=== PATIENT | female | born 1970 | race Caucasian/White ===

== ENCOUNTER 2017-02-14 10:37 | Outpatient (CLI) | payer MEDICARE ==
[~2017-02-14] VITALS: Ht 170.2 cm; Wt 95.9 kg
--- NOTE | ~2017-02-14 | HEMODYNAMI ---
PATIENT:FERNANDO RAMIREZ MEDICAL RECORD: [id number] : 68 LOCATION:[facility] ADMISSION DATE: 02/14/17 Generatedon:02/14/201713:15 Patient name: FERNANDO RAMIREZ Patient #: [id number] SSN: D OB: 1970 Date of study: 02/14/2017 Page: Of Hemodynamic Procedure Report Patient Data Patient Demographics Procedure consent was obtained First Name: FERNANDO Gender: Female Last Name: ASHLEY : 1970 Middle Initial: L Age: 46 year(s) Patient #: [id number] Race: Additional ID: [id number] Contact details [address]: [address] [place] [address] State: [place] City: [place] Zip code: [address] Admission Admission Data Admission Date: 02/14/2017 Admission Time: 10:37 Procedure Procedure Types Cath Procedure Diagnostic Procedure LHC LHC w/Coronaries Miscellaneous Procedures Moderate Sedation up to 15 minutes Procedure Description Procedure Date Procedure Date: 02/14/2017 Procedure Start Time: 13:03 Procedure End Time: 13:15 Procedure Staff Name Function Emanuel Keita MD Performing Physician Tobin Holland RT Scrub Pee Rider RN Nurse Sandra Perez RT Monitor Procedure Data Cath Procedure Fluoroscopy Diagnostic fluoroscopy Total fluoroscopy Time: 1.3 time: 1.3 min min Diagnostic fluoroscopy Total fluoroscopy dose: 411 dose: 411 mGy mGy Contrast Material Contrast Material Type Amount (ml) Isovue 300 71 Entry Location Entry Primary Successful Side Size Upsize Upsize Entry Closure Succes sful Closure Location (Fr) 1 (Fr) 2 (Fr) Remarks Device Remarks Femoral Right 5 Fr Exoseal artery Estimated blood loss: 5 ml Diagnostic catheters Device Type Used For End Catheter Placement Cordis 5Fr JL 4.0 Left Coronary Catheter (MP) Angiography Cordis 5Fr 3DRC Catheter Right Coronary (MP) Angiography Cordis 5Fr Pigtail LV Angiography Catheter (MP) Procedure Complications No complications Procedure Medications Medication Administration Route Dosage Oxygen NC 2 l/min Heparin Flush Bag added to field 2 bags (1000units/500ml NS) 0.9% NaCl I.V. 100 ml/hr Fentanyl I.V. 50 mcg Versed I.V. 1 mg Fentanyl I.V. 50 mcg Versed I.V. 1 mg Fentanyl I.V. 100 mcg Versed I.V. 2 mg Hemodynamics Rest Heart Rate: 72 (bpm) Pressure Samples Time Site Value (mmHg) Purpose Heart Use Rate(bpm) 13:09 LV 116/-8,14 EDP 83 Gradients Valve Time Site Site Mean SEP/DFP Peak To Heart Use 1 2 (mmHg) (sec/min) Peak Rate (mmHg) (bpm) Aortic 13:10 LV AO 84 Snapshots Pre Cath Intra NCS Post Cath Vital Signs Time Heart Resp SPO2 etCO2 [id number] NIBP Rhythm Pain Sedation Rate (ipm) (%) (mmHg) (mmHg) (mmHg) Status Level (bpm) 12:46:46 71 17 100 0 0 114/77(93) NSR 0 (11) 10(A) , No pain 12:50:51 69 16 99 0 0 119/82(93) NSR 0 (11) 10(A) , No pain 12:55:01 70 18 100 0 0 113/74(87) NSR 0 (11) 10(A) , No pain 12:59:09 77 17 96 0 0 104/71(86) NSR 0 (11) 10(A) , No pain 13:03:15 76 19 96 0 0 107/71(86) NSR 0 (11) 9(A) , No pain 13:07:23 80 18 96 0 0 98/61(84) NSR 0 (11) 9(A) , No pain 13:11:28 85 17 96 0 0 94/63(80) NSR 0 (11) 9(A) , No pain Medications Time Medication Route Dose Verified Delivered Reason Notes Effec tiveness by by 12:47:15 Oxygen NC 2 Pee Altamiranoy Per l/min Tereso Rider RN physician RN 12:47:24 Heparin Flush added 2 Pee [place] used for Bag to bags Tereso Rider RN procedure (1000units/500ml field RN NS) 12:47:37 0.9% NaCl I.V. 100 Pee Pee Per ml/hr Tereso Rider RN physician RN 13:01:29 Fentanyl I.V. 50 Pee Pee for [facility] [place] Tereso Rider RN sedation RN 13:01:39 Versed I.V. 1 mg Pee Pee for Tereso Rider RN sedation RN 13:02:55 Fentanyl I.V. 50 Pee Pee for [facility] [place] Ridershobha Rider RN sedation RN 13:02:59 Versed I.V. 1 mg Pee Altamiranoy for Tereso Rider RN sedation RN 13:06:36 Fentanyl I.V. 100 Pee Pee for [facility] [place] Ridershobha Rider RN sedation RN 13:06:39 Versed I.V. 2 mg Pee Pee for Tereso Rider RN sedation paint stripper Log Time Note 12:27:55 Pee Rider RN sent for patient. Start room use. 12:32:56 Time tracking: Regular hours 12:33:01 Plan of Care:Hemodynamics will remain stable., Cardiac rhythm will remain stable., Comfort level will be maintained., Respiratory function will remain adequate., Patient/ family verbilizes understanding of procedure., Procedure tolerated without complication., Recovers from procedure without complications.. 12:37:34 Patient received from Pre/Post Procedure Room to [facility] 1 Alert and oriented. Tansferred to table in Supine position. 12:37:35 Warm blankets applied, and yordan hugger turned on for patient comfort. 12:37:35 Correct patient and procedure confirmed by team. 12:37:37 Signed procedure consent form obtained from patient. 12:37:37 ECG and BP/O2 sat monitors applied to patient. 12:37:38 Full Disclosure recording started 12:45:47 Vital chart was started 12:47:07 Rhythm: sinus rhythm 12:47:15 Oxygen 2 l/min NC was administered by Pee Rider RN; Per physician; 12:47:24 Heparin Flush Bag (1000units/500ml NS) 2 bags added to field was administered by Pee Rider RN; used for procedure; 12:47:37 0.9% NaCl 100 ml/hr I.V. was administered by Pee Rider RN; Per physician; 12:48:17 H&P Date Dictated: 02/08/2017 Within 30 days and on chart., H&P Addendum completed by physician on day of procedure. (MUST COMPLETE FOR ALL OUTPATIENTS). 12:48:19 Pre-procedure instructions explained to patient. 12:48:19 Pre-op teaching completed and patient verbalized understanding. 12:48:21 Family in waiting room. 12:48:26 Patient NPO since Midnight. 12:48:31 Use device set Femoral Dx 12:48:32 Acist Syringe opened to sterile field. 12:48:33 Bag Decanter opened to sterile field. 12:48:33 Medline Cath Pack opened to sterile field. 12:48:34 Terumo 5Fr [place] Sheath opened to sterile field. 12:48:34 St Abraham 260cm J .035 wire opened to sterile field. 12:48:35 Acist Hand Control opened to sterile field. 12:48:36 Acist Manifold opened to sterile field. 12:48:36 Diagnostic Infinity 5Fr Multipack catheter opened to sterile field. 12:48:37 Tegaderm 4 x 4 opened to sterile field. 12:48:55 Is the patient allergic to Iodine/contrast media? No. 12:49:01 Is patient on blood thinner?No 12:49:03 Patient diabetic? Yes. 12:49:11 If diabetic: On Metformin? Yes 12:49:16 If on Metformin: Last Dose? 02/12/2017 12:49:20 Previous problem with sedation/anesthesia? No ? 12:49:21 Snore? No 12:49:23 Sleep apnea? No 12:49:25 Deviated septum? No 12:49:25 Opens mouth fully? Yes 12:49:26 Sticks out tongue? Yes 12:49:28 Airway obstruction? No ? 12:49:30 Dentures? No ? 12:49:40 Pre procedure: right dorsailis pedis pulse 2+ Normal; easily identifiable; not easily obliterated 12:49:46 Pre procedure: right radial pulse 0-Absent 12:49:50 Patient pain scale 0/10 ?. 12:50:13 IV patent on arrival in left hand with 0.9% NaCl at [facility]. 12:50:18 Lab results completed and on chart. 12:50:33 Right groin area was prepped with chlora-prep and draped in sterile fashion 12:50:34 Alarms reviewed by R. N. 12:50:34 Sharps counted by scrub and verified by R.N. 12:51:15 Physician paged 12:51:17 Baseline sample Acquired. 12:53:36 Zero performed for pressure channel P1 12:53:40 Zero performed for pressure channel P1 13:00:57 Final Timeout: patient, procedure, and site verified with staff and physician. All members of the team are in agreement. 13:00:59 Right groin site verified by team. 13:01:02 Physical assessment completed. ASA score P 2 - A patient with mild systemic disease as per Emanuel Keita MD. 13:01:09 Sedation plan: IV Moderate Sedation Versed, Fentanyl 13:01:29 Fentanyl 50 mcg I.V. was administered by Pee Rider RN; for sedation; 13:01:39 Versed 1 mg I.V. was administered by Pee Rider RN; for sedation; 13:02:55 Fentanyl 50 mcg I.V. was administered by Pee Rider RN; for sedation; 13:02:59 Versed 1 mg I.V. was administered by Pee Rider RN; for sedation; 13:03:35 Procedure started. 13:03:38 Local anesthetic to right femoral artery with Lidocaine 2% by Emanuel Keita MD.INITIAL ACCESS ONLY 13:04:54 A 5 Fr sheath was inserted into the Right Femoral artery 13:05:01 A Cordis 5Fr JL 4.0 Catheter (MP) was advanced over the wire and used for Left Coronary Angiography. 13:06:36 Fentanyl 100 mcg I.V. was administered by Pee Rider RN; for sedation; 13:06:39 Versed 2 mg I.V. was administered by Pee Rider RN; for sedation; 13:07:31 Catheter removed. 13:07:36 A Cordis 5Fr 3DRC Catheter (MP) was advanced over the wire and used for Right Coronary Angiography. 13:08:14 Catheter removed. 13:08:54 A Cordis 5Fr Pigtail Catheter (MP) was advanced over the wire and used for LV Angiography. 13:10:01 LV gram done using PIERRE 13:10:02 LV hemodynamics recorded. 13:10:05 Injector settings: Ml/sec: 10, Volume: 20, 13:10:19 EF : 60 % 13:10:40 Catheter removed. 13:10:49 Cordis 5Fr Exoseal opened to sterile field. 13:10:58 Sheath removed intact; hemostasis achieved with Exoseal to the Right Femoral artery. 13:10:59 Procedure ended.(Physican Out) 13:11:09 Fluoroscopy time 01.30 minutes. 13:11:13 Flurop Dose total: 411 13:11:13 Fluoroscopy dose: 411 mGy 13:11:19 Contrast amount:Isovue 300 71ml. 13:11:21 Sharps counted by scrub and verified by R.N. 13:11:21 Insertion/operative site no bleeding no hematoma. 13:11:27 Post-op/insertion site Right Femoral artery dressed using a 4 x 4 and Tegaderm. 13:11:31 Post right femoral artery:stable, clean and dry 13:11:32 Post Procedure Pulses reassessed and unchanged 13:11:36 Post-procedure physical assessment completed. ASA score P 2 - A patient with mild systemic disease as per Emanuel Keita MD. 13:11:39 Post procedure rhythm: unchanged. 13:11:43 Estimated blood loss: 5 ml 13:11:45 Post procedure instruction explained to patient.Patient verbalizes understanding. 13:11:46 Patient needs reinforcement of post procedure teaching. 13:11:49 Procedure type changed to Cath procedure, Diagnostic procedure, LHC, LHC w/Coronaries, Miscellaneous Procedures, Moderate Sedation up to 15 minutes 13:11:56 Procedure Complication : No complications 13:11:58 See physician's report for complete and final results. 13:12:13 Procedure and supply charges have been captured, reviewed, submitted and are correct. 13:14:54 Vital chart was stopped 13:14:57 Report given to Pre/Post Procedure Room. 13:14:59 Patient transfered to Pre/Post Procedure Room with Stretcher. 13:15:16 Procedure ended. 13:15:16 Full Disclosure recording stopped 13:15:19 End room use (Document Last) Device Usage Item Name Manufacture Quantity Catalog Hospital Part Current Minimal Lo t# / Number Charge Number Stock Stock Serial# Code [facility] [id number] 850859 912194 199604 20 Syringe Medical [employer] Inc Bag Microtek 1 2002S 907416 94361 092326 5 Decanter [employer] Inc. Medline Cardinal 1 [id number] 011816 83549 138917 5 Cath Pack Health Terumo 5Fr Terumo 1 [id number] 282427 196499 188443 [address] Abraham 1 329262 289111 381566 967117 30 260cm J .035 wire Acist Hand Acist 1 16781 658275 070343 914638 5 Control Medical [employer] Inc Acist Acist 1 39435 467704 277241 197120 5 Manifold Medical Systems Inc Diagnostic Cardinal 1 [id number] 413216 38852 857749 30 Infinity Health 5Fr Multipack catheter Tegaderm 4 3M 1 1626W 113637 866167 353547 5 x 4 Cordis 5Fr Cardinal 1 755010 5 JL 4.0 Health Catheter (MP) Cordis 5Fr Cardinal 1 139543 5 3DRC Health Catheter (MP) Cordis 5Fr Cardinal 1 575819 5 Pigtail Health Catheter (MP) Cordis 5Fr Cardinal 1 EX500 883739 080831 843748 10 Rise Signature Audit [place] Stage Time Signature Unsigned Intra-Procedure 02/14/2017 Sandra 1:15:31 PM Counts RT(R) Signatures Monitor : Sandra Signature : Counts RT Date : Time : [id number] [place] [address]
[~2017-02-14 10:37] MED LIST: CYCLOBENZAPRINE10 MG PO; LANTUS INSULIN10 ML SQ; LEVAQUIN500 MG PO; LEXAPRO20 MG PO; LINZESS290 MCG PO; NEURONTIN 300300 MG PO; PERCOCET 7.5/321 TAB PO; PROTONIX40 MG PO; TOPAMAX50 MG PO; XANAX1 MG PO
[2017-02-14] MEDS ORDERED: GLUCOTROL 5 MG T5 MG PO (10:59)
[2017-02-14] MEDS ORDERED: DESERYL100 MG PO (11:00)
[2017-02-14] MEDS ORDERED: GLUCOPHAGE500 MG PO (11:01)
[2017-02-14] MEDS ORDERED: OXYBUTYNIN CHLOR5 MG PO (11:03)
[2017-02-14 11:04] VITALS: BP 125/73; Ht 170.2 cm; Wt 95.9 kg
[2017-02-14 11:26] LABS: BASOPHILS 0.3 % (0.0-2.0); EOSINOPHILS 2.5 % (0-7); HEMOGLOBIN 13.1 g/dL (12-16); IMMATURE GRANULOCYTES 0.4 % (0-5); LYMPHOCYTES 28.9 % (15-50); MCH 29.9 pg (26.0-34.0); MCHC 33.6 g/dL (31.0-37.0); MEAN PLATELET VOLUME 9.1 fL (7.4-10.4); MONOCYTES 7.6 % (2-11); NEUTROPHILS 60.3 % (40-80); PLATELET COUNT 265 10x3/uL (130-400); RBC 4.38 10x6/uL (4.00-5.40); WBC 7.6 10x3/uL (4.8-10.8)
[2017-02-14 11:42] LABS: ANION GAP 16.9 mmol/L (8-16); CALCIUM 8.8 mg/dL (8.5-10.1); CARBON DIOXIDE 20.3 mmol/L (21.0-32.0); POTASSIUM - SERUM 4.2 mmol/L (3.5-5.1)
--- NOTE | 2017-02-14 13:59 | NUR ---
1345-HAVING SEVERE ITCHING, PAGED DR CAM, RIGHT GROIN CDI, NO HEMATOMA. 1350-NEW ORDERS RECEIVED 1357-ATIVAN 2MG SIVP AND BENADRYL 50MG SIVP GIVEN FOR SEVERE ITCHING AND AGGITATION. 1401-ITCHING BETTER
--- NOTE | 2017-02-14 15:25 | NUR ---
1515-IV D'C WITH CATH TIP INTACT, RIGHT GROIN CDI, WRITTEN AND VERBAL INSTRUCTIONS GIVEN TO PT AND FRIEND. D'C HOME IN PRIVATE CAR
--- NOTE | 2017-02-15 08:22 | OP ---
PATIENT NAME: FERNANDO RAMIREZ MEDICAL RECORD: [id number] :68 LOCATION:D.CAT ADMISSION DATE: SURGEON: JANKI CAM MD DATE OF OPERATION: 02/14/2017 PROCEDURES: Left heart catheterization, selective coronary angiography, right femoral artery approach. CATHETERS: A 5-Beninese sheath, 5/4 left and right Terri, 5/4 pig. The procedure was well tolerated. The patient returned to the kay, sheath removed. ExoSeal device placed. FINDINGS: Left ventriculography in 30-degree PIERRE view: Normal wall motion, normal systolic function. CORONARY ANATOMY: Left main: Left main is free of disease. LAD: Free of disease in the diagonal system. CIRCUMFLEX: Free of disease in the marginal system. RIGHT CORONARY ARTERY: Dominant artery, gives rise to PDA, free of disease. IMPRESSION: Normal systolic function. Normal coronary anatomy. TRANSINT:[id number] Voice Confirmation ID: [id number] DOCUMENT ID: [id number] JANKI CAM MD at 0822 CC: [id number] DICTATION DATE: 02/14/17 1316 ABSTRACT WRITER: 02/14/17 1352 DEP CLI 02/14/17 [facility] [address] [place] [address]
== END 2017-02-14 15:26 | disposition home or self-care (01) ==
LOC: D.CATH 10:37
PROVIDERS: Internal Medicine Interventional Cardiology
DX: I20.9 Angina pectoris, unspecified (principal); E11.9 Type 2 diabetes mellitus without complications; E78.5 Hyperlipidemia, unspecified; R07.9 Chest pain, unspecified; F17.200 Nicotine dependence, unspecified, uncomplicated

== ENCOUNTER 2017-02-14 20:00 | Emergency (ER) | payer MEDICARE ==
[2017-02-14 11:04] VITALS: BMI 33.1
[~2017-02-14 20:00] MED LIST changes: +DESERYL100 MG PO; +GLUCOPHAGE500 MG PO; +GLUCOTROL 5 MG T5 MG PO; +OXYBUTYNIN CHLOR5 MG PO
[2017-02-14 23:13] LABS: APPEARANCE CLEAR (CLEAR); BILIRUBIN NEGATIVE (NEGATIVE); COLOR YELLOW (YELLOW); GLUCOSE NEGATIVE (NEGATIVE); KETONE NEGATIVE (NEGATIVE); LEUKOCYTE ESTERASE NEGATIVE (NEGATIVE); NITRITE NEGATIVE (NEGATIVE); PROTEIN NEGATIVE (NEGATIVE); UROBILINOGEN NORMAL (NORMAL)
[2017-02-14 23:24] LABS: BASOPHILS 0.2 % (0.0-2.0); EOSINOPHILS 2.4 % (0-7); HEMATOCRIT 36.6 % (36.0-48.0); HEMOGLOBIN 11.9 g/dL (12-16); IMMATURE GRANULOCYTES 0.2 % (0-5); LYMPHOCYTES 25.6 % (15-50); MCH 29.2 pg (26.0-34.0); MCHC 32.5 g/dL (31.0-37.0); MCV 89.9 fL (80.0-100.0); MEAN PLATELET VOLUME 9.2 fL (7.4-10.4); MONOCYTES 8.1 % (2-11); NEUTROPHILS 63.5 % (40-80); PLATELET COUNT 243 10x3/uL (130-400); RBC 4.07 10x6/uL (4.00-5.40); RDW 13.2 % (11.5-14.5)
[2017-02-14 23:29] LABS: WBC 10.2 10x3/uL (4.8-10.8)
[2017-02-14 23:41] LABS: ALBUMIN 2.9 g/dL (3.4-5.0); ANION GAP 10.7 mmol/L (8-16); BILIRUBIN - TOTAL 0.14 mg/dL (0.2-1.3); CALCIUM 8.4 mg/dL (8.5-10.1); POTASSIUM - SERUM 4.3 mmol/L (3.5-5.1); PROTEIN - SERUM 6.4 g/dL (6.4-8.2)
[2017-02-14 23:48] LABS: CARBON DIOXIDE 27.6 mmol/L (21.0-32.0)
== END 2017-02-15 00:15 | disposition home or self-care (01) ==
LOC: D.ER 20:00
PROVIDERS: Emergency Medicine
DX: R10.9 Unspecified abdominal pain (principal); F41.9 Anxiety disorder, unspecified; F32.9 Major depressive disorder, single episode, unspecified; E11.9 Type 2 diabetes mellitus without complications; M79.7 Fibromyalgia; K21.9 Gastro-esophageal reflux disease without esophagitis; F17.200 Nicotine dependence, unspecified, uncomplicated

== ENCOUNTER 2017-06-13 08:15 | Day surgery (SDC) | payer MEDICARE ==
[2017-06-12 09:29] LABS: BASOPHILS 0.2 % (0-2); EOSINOPHILS 1.1 % (0-7); HEMATOCRIT 39.9 % (36.0-48.0); HEMOGLOBIN 13.3 g/dL (12-16); IMMATURE GRANULOCYTES 0.2 % (0-5); MCH 29.2 pg (26.0-34.0); MCHC 33.3 g/dL (31.0-37.0); MCV 87.7 fL (80.0-100.0); MEAN PLATELET VOLUME 9.1 fL (7.4-10.4); MONOCYTES 6.2 % (2-11); NEUTROPHILS 66.3 % (40-80); PLATELET COUNT 235 10x3/uL (130-400); RBC 4.55 10x6/uL (4.00-5.40); RDW 13.5 % (11.5-14.5); WBC 8.9 10x3/uL (4.8-10.8)
[2017-06-12 09:46] LABS: ANION GAP 9.4 mmol/L (8-16); CARBON DIOXIDE 27.9 mmol/L (21.0-32.0); CREATININE - SERUM 1.2 mg/dL (0.6-1.3); POTASSIUM - SERUM 4.3 mmol/L (3.5-5.1)
[2017-06-12 09:54] LABS: INR 0.83 (0.85-1.17); PROTIME 11.2 SECONDS (11.6-15.0)
[2017-06-12 09:55] LABS: APTT 28.9 SECONDS (22.8-39.4)
[~2017-06-13] VITALS: Ht 170.2 cm; Wt 92.5 kg
[~2017-06-13 08:15] MED LIST changes: +CARAFATE1 G PO; +LIPITOR40 MG PO; +NEURONTIN 400400 MG PO
[2017-06-13 08:41] VITALS: Ht 170.2 cm; Wt 92.5 kg
[2017-06-13] MEDS ORDERED: MEPERIDINE HCL50 MG PO (13:02)
--- NOTE | 2017-06-13 13:57 | NUR ---
CONSULTED ANESTHESIA REGARDING CHEST PAIN. ANESTHESIA ORDERED A POST OP EKG. WILL CONTINUE TO MONITOR.
--- NOTE | 2017-06-13 14:09 | NUR ---
ANESTHESIA REVIEWED EKG. NORMAL EKG. NO NEW ORDERS.
--- NOTE | 2017-06-13 15:47 | NUR ---
1545--IV DC'D, PT UP TO DRESS. KAT RN
--- NOTE | 2017-06-13 16:32 | NUR ---
1354--PT COMPLAINS OF PAIN FROM DRESSING, RATES PAIN 5/10. DEMEROL 50 MG TAB GIVEN PO. KAT YEN 9501--PT REPORTS PAIN IS GETTING BETTER. DISCHARGE INSTRUCTIONS GIVEN, PT VERBALIZES UNDERSTANDING. PT OFF UNIT VIA WC. KAT YEN
--- NOTE | 2017-06-14 21:23 | OP ---
PATIENT NAME: FERNANDO RAMIREZ MEDICAL RECORD: [id number] :68 LOCATION:D.OPS ADMISSION DATE: SURGEON: CONOR RYAN MD DATE OF OPERATION: 06/13/2017 Orthopedic Surgery Operative Note PREOPERATIVE DIAGNOSIS: Impingement syndrome of the right shoulder. POSTOPERATIVE DIAGNOSES: Impingement syndrome of the right shoulder plus severe biceps tendinitis. PROCEDURES: 1. Arthroscopic biceps tenotomy. 2. Arthroscopic distal clavicle excision. 3. Arthroscopic subacromial decompression with acromioplasty and bursectomy. SURGEON: Conor Ryan MD. ANESTHESIA: General. INTRAOPERATIVE COMPLICATIONS: None. SUMMARY OF PATHOLOGIC FINDINGS: Consistent with the preoperative diagnosis, the patient had severe impingement, some superficial rotator cuff tearing and also, the patient had severe acromioclavicular arthropathy and biceps tendinopathy. OPERATIVE SUMMARY IN DETAIL: After obtaining the appropriate preoperative orthopedic surgery consent as well as anesthetic consultation, evaluation and clearance, the patient was brought to the operating room and placed on table in supine position. After general laryngeal mask was administered, the patient was placed in a left lateral decubitus position. All pressure points were well padded to include down leg peroneal pad as well as axillary roll. The patient was held firmly down using the vacuum pack suction system. Having completed this, the right upper extremity was then prepped and draped in routine sterile fashion. The arm was held in the Arthrex traction boom at 30 degrees of forward flexion, 30 degrees of abduction with 10 pounds of traction laterally. Arthroscopy was established in the glenohumeral joint from a posterior portal. Anterior portal was established in the anterior safe interval. Diagnostic arthroscopy showed severe biceps tendinitis, very small amount of PASTA lesion, but it was very small. The labrum had some peel back around the posterior superior aspect, slight debridement was done here. At this point, the [place] tissue ablation system was brought in and biceps tenotomy was performed. Attention was then turned to the subacromial space. While on the subacromial space, [place] tissue ablation system was utilized to denude the undersurface of the acromion of all soft tissue elements. Coracoacromial ligament was released. Type 3 acromion was then treated with acromioplasty at the level of acromioclavicular joint. At this point, distal clavicular inferior osteophytes were taken down and through a separate arthroscopic incision anteriorly under direct arthroscopic visualization, distal clavicle excision of 1 cm was performed. Having completed this, bursectomy was performed anteriorly, laterally, posteriorly as well as superiorly. The rotator cuff had attritional tear changes, but no full thickness rotator cuff tearing. Arthroscopy portals were closed in routine interrupted fashion using 4-0 OPERATIVE REPORT [id number] FERNANDO RAMIREZ Prolene. Arthroscopy portal was closed in routine interrupted fashion using 4-0 Prolene and sterile dressings were applied. The patient was awakened and taken to the recovery room in stable condition. All final needle and sponge counts were correct. TRANSINT:[id number] Voice Confirmation ID: [id number] DOCUMENT ID: [id number] SHELBY NUNEZ, CONOR ARGUELLES at 2123 CC: [id number] DICTATION DATE: 06/13/17 1306 WASHERETTE MACHINE OPERATOR: 06/13/17 1608 [facility] 06/13/17 [id number] [place] [address]
== END 2017-06-13 16:25 | disposition home or self-care (01) ==
LOC: D.OPS 08:15 → D.PAN 09:00 → D.OPS 09:00 → D.PAN 09:30 → D.OPS 09:55 → D.PAN 09:55 → D.OPS 16:25
PROVIDERS: Anesthesiology
DX: M75.41 Impingement syndrome of right shoulder (principal); M75.21 Bicipital tendinitis, right shoulder; Z01.812 Encounter for preprocedural laboratory examination

== ENCOUNTER → 2017-07-29 07:49 | Outpatient (CLI) | payer MEDICARE ==
[2017-06-13 08:41] VITALS: BMI 32.0
[~2017-07-29 07:49] MED LIST changes: +ATARAX 25 MG TA25 MG PO; +ENDOCET 10-3251 TAB PO; +MEPERIDINE HCL50 MG PO; +NAPROSYN500 MG PO; +PHENERGAN25 M1 PO
--- NOTE | 2017-08-01 08:51 | EMG ---
PATIENT:FERNANDO RAMIREZ DATE OF SERVICE: 07/29/17 MEDICAL RECORD: [id number] DATE OF : 68 LOCATION: [facility] ADMISSION DATE: REFERRING PHYSICIAN: SELIN GUSMAN MD INTERPRETING PHYSICIAN: SELIN GUSMAN MD DATE OF SERVICE: 07/29/2017 Referred by myself as an outpatient DATE OF EXAMINATION: 07/29/2017 ELECTROMYOGRAPHIC DATA: Electromyographic examination is limited to both lower extremities. The patient had a great deal of difficulty in tolerating the procedure secondary to complaints of pain, especially with the nerve conduction studies. She also had difficulty with the needle electrode examination as well. In the right lower extremity, right peroneal motor stimulation elicits a compound motor action potential with a distal latency of 5.1 milliseconds, peak amplitude of 3 millivolts, and calculated conduction velocity of 44 meters per second. Right tibial motor stimulation elicits a compound motor action potential with a distal latency of 3.6 milliseconds, peak amplitude of 8 millivolts, and calculated conduction velocity of 41 meters per second. Antidromic right sural sensory stimulation elicits a response with a distal latency of 2.7 milliseconds, amplitude of 5 microvolts and calculated conduction velocity of 40 meters per second. The right lower extremity H reflex recording at gastrocsoleus has a latency of 41 milliseconds. In the left lower extremity, left peroneal motor stimulation elicits a compound motor action potential with a distal latency of 4.8 milliseconds, peak amplitude of 4 millivolts, and calculated conduction velocity of 43 meters per second. Left tibial motor stimulation elicits a compound motor action potential with a distal latency of 5.4 milliseconds, peak amplitude of 6 millivolts, and calculated conduction velocity of 40 meters per second. Antidromic left sural sensory stimulation elicits no reliable response. The left lower extremity H reflex recording at gastrocsoleus is absent. Needle electrode examination is limited to both lower extremities as well. Muscles interrogated include the abductor hallucis, extensor digitorum brevis, abductor digiti quinti, tibialis anterior, medial gastrocnemius, vastus lateralis, semitendinosis and gluteus anaid. There is no abnormality of insertional activity and no abnormal spontaneous activity is seen in all muscles interrogated. Motor unit potential morphology and the pattern of motor unit potential firing and recruitment, however, demonstrates decreased numbers of motor units firing at a slow variable rate consistent with the patient's difficulty in tolerating the procedure and variable in complete effort. IMPRESSION: Electromyographic examination of both lower extremities demonstrates absence of the left sural sensory response and left H reflex. The motor and sensory responses otherwise in both lower extremities are normal with the exception of prolongation of the right H reflex. All values fall at or near the lower limits of normal in terms of conduction velocity calculations. The findings are consistent with a diffuse disorder of the lower motor neuron in both lower extremities, minimal in degree electrically, consistent with the diagnosis of a sensory motor peripheral polyneuropathy. This is soft findings ELECTROMYGRAM/NERVE CONDUCTION [id number] FERNANDO RAMIREZ based on levels near or at the lower limits of normal. In addition, this is suggestive of a superimposed left more proximal lesion of S1 nerve fibers with the absence of the sural sensory and H reflex on this side only. Clinical correlation is required. TRANSINT:[id number] Voice Confirmation ID: [id number] DOCUMENT ID: [id number] SELIN GUSMAN MD at 0851 CC: [id number] DICTATION DATE: 07/29/17 0841 HEADER MACHINE OPERATOR: 07/29/17 1227 DEP CLI 07/29/17 [facility] [address] [place] [address]
== END | disposition home or self-care (01) ==
LOC: D.CN 07:49
DX: G60.9 Hereditary and idiopathic neuropathy, unspecified (principal); M54.5 Low back pain; E11.40 Type 2 diabetes mellitus with diabetic neuropathy, unspecified

== ENCOUNTER 2017-09-05 05:28 | Day surgery (SDC) | payer MEDICARE ==
[2017-09-04 09:23] LABS: HEMATOCRIT 39.8 % (36.0-48.0); HEMOGLOBIN 13.1 g/dL (12-16); MCH 30.3 pg (26.0-34.0); MCHC 32.9 g/dL (31.0-37.0); MCV 91.9 fL (80.0-100.0); MEAN PLATELET VOLUME 9.3 fL (7.4-10.4); RBC 4.33 10x6/uL (4.00-5.40); RDW 13.4 % (11.5-14.5); WBC 7.5 10x3/uL (4.8-10.8)
[2017-09-04 09:31] LABS: CALCIUM 8.7 mg/dL (8.5-10.1); CARBON DIOXIDE 23.9 mmol/L (21.0-32.0); CREATININE - SERUM 1.3 mg/dL (0.6-1.3); POTASSIUM - SERUM 3.9 mmol/L (3.5-5.1)
[~2017-09-05 05:28] MED LIST changes: -ATARAX 25 MG TA25 MG PO; -ENDOCET 10-3251 TAB PO; -NAPROSYN500 MG PO; -PHENERGAN25 M1 PO
[2017-09-05] MEDS ORDERED: NAPROSYN500 MG PO (09:50)
[2017-09-05] MEDS ORDERED: PHENERGAN25 M1 PO (09:51)
[2017-09-05] MEDS ORDERED: ENDOCET 10-3251 TAB PO (09:51)
[2017-09-05] MEDS ORDERED: ATARAX 25 MG TA25 MG PO (09:52)
[2017-09-05 09:58] VITALS: BP 102/69; BMI 30.1
[2017-09-05] MEDS ORDERED: MEPERIDINE HCL50 MG PO (12:13)
--- NOTE | 2017-09-05 16:13 | NUR ---
1300 TO ROOM 2516 WITH B/P 95/57 1330 B/P 88/48 1345 B/P 95/58 1400 B/P 97/56 , IV DC WITH CATHER TIP INTACT 1430 B/P 88/45 CALL PETRA, SPOKE WITH IRINA NEW ORDERS 1500 IV RESTART X1 WITH 22 NEEDLE, IV FLIUD BOLUS STARTED 1530 B/P 100/52 1600 B/P 100\57 500 CC BOLUS DONE .CALLED IRINA OK TO DC, IV DC WITH CATHER TIP INTACT,PATIENT AWAKE AND ALERT X 4 TALKING WITH FAMILY
--- NOTE | 2017-09-30 12:37 | OP ---
PATIENT NAME: CALISTA RAMIREZ MEDICAL RECORD: [id number] :68 LOCATION:[facility] ADMISSION DATE: SURGEON: CONOR RYAN MD DATE OF OPERATION: 09/05/2017 PREOPERATIVE DIAGNOSIS: SLAP lesion with impingement syndrome of the right shoulder. POSTOPERATIVE DIAGNOSIS: SLAP lesion with impingement syndrome of the right shoulder. PROCEDURES: 1. Arthroscopic SLAP repair. 2. Arthroscopic subacromial decompression, acromioplasty, and bursectomy. SURGEON: Conor Ryan MD ANESTHESIA: General. INTRAOPERATIVE COMPLICATIONS: None. SUMMARY OF PATHOLOGIC FINDINGS: Calista had a SLAP tear anterior to posterior that required anchor fixation along with some impingement noted by excoriation of the coracoacromial ligament. OPERATIVE SUMMARY IN DETAIL: After obtaining the appropriate preoperative orthopedic surgery consent as well as anesthetic consultation, evaluation and clearance, the patient was brought to the operating room and placed on the operating table in supine position. After adequate general laryngeal mask airway was administered, she was placed in the right lateral decubitus position. All pressure points were well padded to include down leg peroneal pad as well as axillary roll. She was held firmly to the operating table using the vacuum pack suction system. The patient's right upper extremity and shoulder were then prepped and draped in routine sterile fashion. The arm was held in the Arthrex traction boom at 30 degrees of forward flexion, 30 degrees of abduction with 10 pounds of traction laterally. Arthroscopy was established in the glenohumeral joint from a posterior portal and the anterior portal was established in the anterior safe interval. Diagnostic arthroscopy did reveal the labral tear as tolerated, this are as indicated above in the MRI. The Arthrex percutaneous kit was utilized to place anchors at the 9 o'clock, 10:30, and 1 o'clock position for excellent labral reapproximation as the superior aspect of the glenoid had been debrided of soft tissue elements back to cortical bleeding bone. Having completed the SLAP repair, attention was turned to the subacromial space. The subacromial space did show undersurface excoriation of the coracoacromial ligament. The [place] tissue ablation system was utilized to denude the undersurface of the coracoacromial ligament and then a 5-0 barrel bur was used for acromioplasty at the level of acromioclavicular joint. Having completed this, arthroscopy portals were closed in routine interrupted fashion using 4-0 Prolene. Sterile dressings were applied. The patient was awakened and taken to recovery room in stable condition. All final needle and sponge counts were correct. TRANSINT:[id number] Voice Confirmation ID: [id number] DOCUMENT ID: [id number] OPERATIVE REPORT [id number] CALISTA RAMIREZ MD, CONOR ARGUELLES at 1237 CC: [id number] DICTATION DATE: 09/30/17 1045 PICTURE PAINTER: 09/30/17 1208 [facility] 09/05/17 [id number] [place] [address]
== END 2017-09-05 16:00 | disposition home or self-care (01) ==
LOC: D.OPS 05:28 → D.PAN 10:30 → D.OPS 10:30
PROVIDERS: Anesthesiology
DX: S43.431A Superior glenoid labrum lesion of right shoulder, initial encounter (principal); Z01.812 Encounter for preprocedural laboratory examination

== ENCOUNTER → 2017-10-24 15:02 | Outpatient (CLI) | payer MEDICARE ==
[~2017-10-24 15:02] MED LIST changes: +ATARAX 25 MG TA25 MG PO; +ENDOCET 10-3251 TAB PO; +NAPROSYN500 MG PO; +PHENERGAN25 M1 PO
== END | disposition home or self-care (01) ==
LOC: D.CT 15:00
DX: R42 Dizziness and giddiness (principal)

== ENCOUNTER → 2018-01-22 12:29 | Outpatient (CLI) | payer MEDICARE ==
[~2018-01-22 12:29] MED LIST changes: +OXYCODONE HCL5 MG PO
== END | disposition home or self-care (01) ==
LOC: D.MRI 01-15 13:30
DX: M54.12 Radiculopathy, cervical region (principal)

== ENCOUNTER 2018-02-07 16:12 | Emergency (ER) | payer MEDICARE ==
[~2018-02-07 16:12] MED LIST changes: -OXYCODONE HCL5 MG PO
== END 2018-02-07 16:32 | disposition home or self-care (01) ==
LOC: D.ER 16:12
DX: R55 Syncope and collapse (principal)

== ENCOUNTER 2018-02-12 09:35 | Emergency (ER) | payer MEDICARE | END 2018-02-12 12:01 | disposition left against medical advice (07) | LOC: D.ER 09:35 | DX: R51 Headache (principal) ==

== ENCOUNTER 2018-02-24 10:29 | Inpatient (IN) | payer MEDICARE ==
[2018-02-24 11:34] LABS: UDS - AMPHET NEGATIVE QUAL (NEGATIVE); UDS - BARB NEGATIVE QUAL (NEGATIVE); UDS - BENZO NEGATIVE QUAL (NEGATIVE); UDS - COCAINE NEGATIVE QUAL (NEGATIVE); UDS - OPIATE POSITIVE QUAL (NEGATIVE); UDS - PCP NEGATIVE QUAL (NEGATIVE); UDS - THC NEGATIVE QUAL (NEGATIVE)
[2018-02-24 11:57] LABS: APPEARANCE HAZY (CLEAR); BILIRUBIN NEGATIVE (NEGATIVE); COLOR YELLOW (YELLOW); GLUCOSE NEGATIVE (NEGATIVE); KETONE LARGE mg/dL (NEGATIVE); NITRITE NEGATIVE (NEGATIVE); PROTEIN NEGATIVE (NEGATIVE); UROBILINOGEN NORMAL (NORMAL)
[2018-02-24 11:58] LABS: BACTERIA FEW /hpf (NONE SEEN); EPITHELIAL CELLS OCC /hpf (0-5); MUCUS <1+ /lpf (NONE SEEN); WHITE CELLS - URINE RARE /hpf (0-5)
[2018-02-24 11:58] LABS: BASOPHILS 0.1 % (0-2); EOSINOPHILS 1.1 % (0-7); HEMATOCRIT 38.3 % (36.0-48.0); HEMOGLOBIN 13.2 g/dL (12-16); IMMATURE GRANULOCYTES 0.3 % (0-5); LYMPHOCYTES 23.2 % (15-50); MCH 30.8 pg (26.0-34.0); MCHC 34.5 g/dL (31.0-37.0); MCV 89.3 fL (80.0-100.0); MONOCYTES 7.3 % (2-11); PLATELET COUNT 263 10x3/uL (130-400); RBC 4.29 10x6/uL (4.00-5.40); RDW 12.9 % (11.5-14.5); WBC 11.2 10x3/uL (4.8-10.8)
[2018-02-24 12:12] LABS: INR 0.93 (0.85-1.17); PROTIME 12.1 SECONDS (11.6-15.0)
[2018-02-24 12:14] LABS: ALBUMIN 3.7 g/dL (3.4-5.0); ALKALINE PHOSPHATASE 80 U/L (46-116); ALT (SGPT) 20 U/L (10-68); BILIRUBIN - TOTAL 0.52 mg/dL (0.2-1.3); CALC OSMOLALITY 276 mosm/kg (275-300); CALCIUM 9.4 mg/dL (8.5-10.1); CARBON DIOXIDE 19.5 mmol/L (21.0-32.0); CHLORIDE - SERUM 102 mmol/L (98-107); CREATININE - SERUM 1.4 mg/dL (0.6-1.3); GLUCOSE 75 mg/dL (74-106); POTASSIUM - SERUM 3.2 mmol/L (3.5-5.1); PROTEIN - SERUM 7.5 g/dL (6.4-8.2); SODIUM 139 mmol/L (136-145); UREA NITROGEN 12 mg/dL (7-18); eGFR NON AFRICAN AMERICAN 42 mL/min (90-120)
[2018-02-24 12:22] LABS: CREATINE KINASE 53 UL (21-215); MAGNESIUM - SERUM 1.3 mg/dL (1.8-2.4); PRO BNP 75 pg/mL (0-125)
[2018-02-24 12:24] LABS: TROPONIN-I < 0.017 ng/mL (0.000-0.060)
[2018-02-24 20:29] VITALS: BP 95/67
[2018-02-25 04:14] VITALS: BP 89/59
[2018-02-25 06:02] LABS: BASOPHILS 0.2 % (0-2); EOSINOPHILS 2.9 % (0-7); HEMATOCRIT 31.2 % (36.0-48.0); IMMATURE GRANULOCYTES 0.4 % (0-5); LYMPHOCYTES 27.3 % (15-50); MCH 30.5 pg (26.0-34.0); MCHC 33.3 g/dL (31.0-37.0); MONOCYTES 9.2 % (2-11); PLATELET COUNT 215 10x3/uL (130-400); WBC 9.1 10x3/uL (4.8-10.8)
[2018-02-25 06:10] LABS: HEMOGLOBIN 10.4 g/dL (12-16); MCV 91.5 fL (80.0-100.0); RBC 3.41 10x6/uL (4.00-5.40)
[2018-02-25 06:56] LABS: BILIRUBIN - TOTAL 0.28 mg/dL (0.2-1.3); CALCIUM 8.6 mg/dL (8.5-10.1); CARBON DIOXIDE 23.6 mmol/L (21.0-32.0); CREATININE - SERUM 1.2 mg/dL (0.6-1.3); POTASSIUM - SERUM 3.6 mmol/L (3.5-5.1); PROTEIN - SERUM 5.9 g/dL (6.4-8.2)
[2018-02-25 06:57] LABS: ALBUMIN 2.7 g/dL (3.4-5.0)
[2018-02-25 08:25] VITALS: BMI 30.1
[2018-02-25 08:32] VITALS: BP 89/56
[2018-02-25 11:44] VITALS: BP 99/53
[2018-02-25 15:17] VITALS: BP 82/52
[2018-02-25 21:33] VITALS: BP 151/61
[2018-02-26 00:25] VITALS: BP 154/64
[2018-02-26 04:21] VITALS: BP 109/72
[2018-02-26 08:37] VITALS: BP 99/66
[2018-02-26 12:01] VITALS: BP 133/76
[2018-02-26 16:24] VITALS: BP 113/71
[2018-02-26 20:54] VITALS: BP 100/75
[2018-02-27 00:36] VITALS: BP 112/74
[2018-02-27 00:49] VITALS: BP 112/74
[2018-02-27 04:57] VITALS: BP 124/78
[2018-02-27 08:48] VITALS: BP 105/71
[2018-02-27] MEDS ORDERED: OXYCODONE HCL5 MG PO (09:39)
== END 2018-02-27 11:11 | disposition home health service (06) | DRG 552 ==
LOC: D.ER 10:29 → D.MS 15:47 → D.EDHOLD 15:47 → D.MS 16:01
PROVIDERS: Family Medicine; Nurse Practitioner Family
DX: S22.089A Unspecified fracture of T11-T12 vertebra, initial encounter for closed fracture (principal); S92.324A Nondisplaced fracture of second metatarsal bone, right foot, initial encounter for closed fracture; S92.344A Nondisplaced fracture of fourth metatarsal bone, right foot, initial encounter for closed fracture; W19.XXXA Unspecified fall, initial encounter; E11.9 Type 2 diabetes mellitus without complications; F32.9 Major depressive disorder, single episode, unspecified; F41.9 Anxiety disorder, unspecified; F12.90 Cannabis use, unspecified, uncomplicated

== ENCOUNTER → 2018-03-02 16:26 | Outpatient (CLI) | payer MEDICARE ==
[2018-02-25 08:25] VITALS: BMI 30.1
[~2018-03-02 16:26] MED LIST changes: +OXYCODONE HCL5 MG PO
[2018-03-02 18:34] LABS: APPEARANCE HAZY (CLEAR); BILIRUBIN NEGATIVE (NEGATIVE); COLOR YELLOW (YELLOW); GLUCOSE NEGATIVE (NEGATIVE); KETONE NEGATIVE (NEGATIVE); NITRITE POSITIVE (NEGATIVE); PH 5.5 (5.0-6.0); PROTEIN TRACE mg/dL (NEGATIVE); UROBILINOGEN NORMAL (NORMAL)
[2018-03-02 18:37] LABS: BACTERIA MANY /hpf (NONE SEEN); EPITHELIAL CELLS OCC /hpf (0-5); RED CELLS - URINE 0-5 /hpf (0-5); WHITE CELLS - URINE >50 /hpf (0-5)
== END | disposition home or self-care (01) ==
LOC: D.LABREF 16:26
PROVIDERS: Family Medicine
DX: R30.0 Dysuria (principal); M54.5 Low back pain; N39.0 Urinary tract infection, site not specified

== ENCOUNTER → 2018-03-13 11:06 | Outpatient (CLI) | payer MEDICARE ==
[2018-02-25 08:25] VITALS: BMI 30.1
== END | disposition home or self-care (01) ==
LOC: D.RAD 11:06
DX: K59.00 Constipation, unspecified (principal)

== ENCOUNTER → 2018-05-15 09:40 | Outpatient (CLI) | payer MEDICARE | END | disposition home or self-care (01) | LOC: D.NM 09:40 | DX: M79.671 Pain in right foot (principal) ==

== ENCOUNTER → 2018-06-02 13:29 | Outpatient (CLI) | payer MEDICARE | END | disposition home or self-care (01) | LOC: D.MRI 13:29 | DX: M25.511 Pain in right shoulder (principal) ==

== ENCOUNTER → 2018-06-23 14:46 | Outpatient (CLI) | payer MEDICARE | END | disposition home or self-care (01) | LOC: D.CT 14:46 | DX: R10.32 Left lower quadrant pain (principal) ==

== ENCOUNTER → 2018-07-09 19:31 | Outpatient (CLI) | payer MEDICARE | END | disposition home or self-care (01) | LOC: D.SLEEP 19:31 | DX: G47.33 Obstructive sleep apnea (adult) (pediatric) (principal); Z01.812 Encounter for preprocedural laboratory examination ==

== ENCOUNTER → 2018-07-17 14:23 | Outpatient (CLI) | payer MEDICARE | END | disposition home or self-care (01) | LOC: D.RAD 14:23 | DX: M25.531 Pain in right wrist (principal); M25.521 Pain in right elbow; M25.511 Pain in right shoulder; M25.551 Pain in right hip; M25.561 Pain in right knee ==

== ENCOUNTER → 2018-08-14 14:32 | Outpatient (CLI) | payer MEDICARE | END | disposition home or self-care (01) | LOC: D.MRI 08-08 15:00 | DX: M25.511 Pain in right shoulder (principal); M54.2 Cervicalgia ==

== ENCOUNTER → 2018-09-02 08:26 | Outpatient (CLI) | payer MEDICARE | END | disposition home or self-care (01) | LOC: D.US 08:26 | DX: N18.3 Chronic kidney disease, stage 3 (moderate) (principal); I95.9 Hypotension, unspecified; E11.9 Type 2 diabetes mellitus without complications; Z68.31 Body mass index [BMI] 31.0-31.9, adult ==

== ENCOUNTER → 2018-10-14 13:12 | Outpatient (CLI) | payer MEDICARE | END | disposition home or self-care (01) | LOC: D.NM 13:00 | DX: N13.30 Unspecified hydronephrosis (principal) ==

== ENCOUNTER → 2019-03-06 12:23 | Outpatient (CLI) | payer MEDICARE ==
[~2019-03-06 12:23] MED LIST changes: +TRAZODONE HCL150 MG PO
== END | disposition home or self-care (01) ==
LOC: D.RAD 12:23
PROVIDERS: ATTEND Family Medicine
DX: R05 Cough (principal); J44.9 Chronic obstructive pulmonary disease, unspecified

== ENCOUNTER 2019-03-10 10:58 | Inpatient (IN) | payer MEDICARE ==
[~2019-03-10] VITALS: Ht 170.2 cm; Wt 90.3 kg
[~2019-03-10 10:58] MED LIST changes: -TRAZODONE HCL150 MG PO
[2019-03-10 11:49] VITALS: BP 105/64
--- NOTE | 2019-03-10 12:26 | NUR ---
PT ARRIVED TO FLOOR VIA WHEELCHAIR. A/O X 4. UP WITH ASSISTANCE. NON PRODUCTIVE COUGH NOTED. NO EDEMA NOTED. BREATHING EVEN/NON LABORED. IV SITED TO Radha FA, PATENT, SALINE LOCKED. RM AIR. FAMILY AT BEDSIDE. DENIES PAIN AT THIS TIME. CONTINENT OF BOWEL AND BLADDER. NO FURTHER CONCERNS AT THIS TIME. FALL PRECAUTIONS IN PLACE. GOWN PROVIDED. NON SKID SOCKS ON. BED LOWERED AND LOCKED. CL IN REACH. SR UP X 2. WILL CTM.
[2019-03-10 12:36] LABS: BASOPHILS 0.3 % (0-2); EOSINOPHILS 1.2 % (0-7); HEMATOCRIT 39.2 % (36.0-48.0); HEMOGLOBIN 13.2 g/dL (12-16); IMMATURE GRANULOCYTES 0.3 % (0-5); LYMPHOCYTES 22.7 % (15-50); MCH 29.7 pg (26.0-34.0); MCHC 33.7 g/dL (31.0-37.0); MCV 88.3 fL (80.0-100.0); MEAN PLATELET VOLUME 8.8 fL (7.4-10.4); MONOCYTES 12.2 % (2-11); NEUTROPHILS 63.3 % (40-80); RBC 4.44 10x6/uL (4.00-5.40); RDW 13.1 % (11.5-14.5)
[2019-03-10 12:43] LABS: PLATELET COUNT 167 10x3/uL (130-400)
[2019-03-10 13:03] LABS: ALBUMIN 3.3 g/dL (3.4-5.0); ANION GAP 11.8 mmol/L (8-16); BILIRUBIN - TOTAL 0.45 mg/dL (0.2-1.3); CALCIUM 8.9 mg/dL (8.5-10.1); CARBON DIOXIDE 23.9 mmol/L (21.0-32.0); CREATININE - SERUM 1.4 mg/dL (0.6-1.3); POTASSIUM - SERUM 3.7 mmol/L (3.5-5.1); PROTEIN - SERUM 6.8 g/dL (6.4-8.2)
--- NOTE | 2019-03-10 14:09 | NUR ---
PT IV INFILTRATED, SKIN RED, TENDER TO TOUCH. IV REMOVED. TIP INTACT.
[2019-03-10 14:57] VITALS: BP 112/68
[2019-03-10 17:02] VITALS: BMI 32.2
--- NOTE | 2019-03-10 19:55 | NUR ---
RESUMING PT CARE. PT IS ALERT LAYING IN BED. NO S/S OF DISTRESS NOTED. BED IN LOW POSITION WITH CALL LIGHT IN REACH. BED IN LOW POSITION WITH CALL LIGHT IN REACH. WILL CONTINUE TO MONITOR PT AND FOLLOW PLAN OF CARE.
[2019-03-10 20:31] VITALS: BP 149/50
--- NOTE | 2019-03-10 20:55 | NUR ---
PT GLUCOSE WAS 468. DR. HECTOR ANSWERING SERVICE WAS CALLED SO HE COULD BE NOTIFIED BUT CALL WAS NOT RETURNED. DR. CANTU PUT IN A HIGHER SLIDING SCALE FOR THE HUMALOG INSULIN.
[2019-03-11 01:56] VITALS: BP 87/53
--- NOTE | 2019-03-11 03:47 | NUR ---
I have reviewed this patient and I concur with the Shift Assessment completed by the Licensed Practical Nurse today this shift.
[2019-03-11 05:37] VITALS: BP 112/52
[2019-03-11 06:33] LABS: ANION GAP 11.7 mmol/L (8-16); BILIRUBIN - TOTAL 0.28 mg/dL (0.2-1.3); CARBON DIOXIDE 24.6 mmol/L (21.0-32.0); CREATININE - SERUM 1.5 mg/dL (0.6-1.3); POTASSIUM - SERUM 3.3 mmol/L (3.5-5.1); PROTEIN - SERUM 6.9 g/dL (6.4-8.2)
[2019-03-11 07:14] LABS: BASOPHILS 0.1 % (0-2); EOSINOPHILS 0 % (0-7); HEMATOCRIT 35.2 % (36.0-48.0); HEMOGLOBIN 11.8 g/dL (12-16); IMMATURE GRANULOCYTES 0.3 % (0-5); LYMPHOCYTES 11.6 % (15-50); MCH 29.2 pg (26.0-34.0); MCHC 33.5 g/dL (31.0-37.0); MCV 87.1 fL (80.0-100.0); MONOCYTES 9.9 % (2-11); NEUTROPHILS 78.1 % (40-80); PLATELET COUNT 196 10x3/uL (130-400); RBC 4.04 10x6/uL (4.00-5.40)
[2019-03-11 07:18] LABS: WBC 7.8 10x3/uL (4.8-10.8)
[2019-03-11 07:29] VITALS: BP 108/70
--- NOTE | 2019-03-11 07:50 | NUR ---
PT RESTING IN BED. NO SIGNS OF DISTRESS. IV TO LEFT WRIST PATENT NO REDNESS OR TENDERNESS. DENIES ANY FUTHER NEED AT THIS TIME. CALL LIGHT IN REACH. BED LOW POSITION. NO FAMILY AT BEDSIDE AT THIS TIME.
--- NOTE | 2019-03-11 10:20 | NUR ---
I have reviewed this patient and I concur with the Shift Assessment completed by the Licensed Practical Nurse today this shift.
[2019-03-11 11:07] LABS: APPEARANCE SL CLDY (CLEAR); BILIRUBIN NEGATIVE (NEGATIVE); COLOR YELLOW (YELLOW); GLUCOSE 50 mg/dL (NEGATIVE); KETONE NEGATIVE (NEGATIVE); NITRITE NEGATIVE (NEGATIVE); PROTEIN TRACE mg/dL (NEGATIVE); SPECIFIC GRAVITY 1.015 (1.005-1.020); UROBILINOGEN NORMAL (NORMAL)
[2019-03-11 11:08] LABS: RED CELLS - URINE 0-5 /hpf (0-5); WHITE CELLS - URINE 0-5 /hpf (0-5)
[2019-03-11 11:09] LABS: BACTERIA MODERATE /hpf (NONE SEEN); EPITHELIAL CELLS 0-5 /hpf (0-5)
[2019-03-11 11:45] VITALS: BP 113/76
[2019-03-11 15:20] VITALS: BP 121/71
--- NOTE | 2019-03-11 19:21 | NUR ---
PT STANDING IN HALLWAY. SAYING SHE WANTS TO LEAVE NOW, SAID THE STERIODS BOTHER HER AND SHE IS WALKING FINE AND MOVING AROUND. SPOKE WITH PT ABOUT NOT TAKING STERIODS TONIGHT SINCE PT HAS THE RIGHT TO REFUSE AND STAYING FOR ANTIBIOTICS AND BREATHING TREATMENTS. PT SAID NO SHE WANTS TO LEAVE NO MATTER WHAT. PAGED MEDHAT, DATA PROGRAMMER FOR DR HECTOR. WAITING FOR CALL BACK.
--- NOTE | 2019-03-11 19:50 | NUR ---
PAGED MEDHAT AGAIN FOR NO CALL BACK.
--- NOTE | 2019-03-11 20:05 | NUR ---
SPOKE WITH MEDHAT REGARDING PT WANTING TO LEAVE. MEDHAT STATED NEED TO PAGE ALONDRA, UNKNOWN IF ALONDRA HAS SEEN PT TODAY. STILL TAPERING SOLU MED AND NEEDING CHINNS APROVAL FOR D/C PAGED DR DEMPSEY AWAITING CALL BACK. PT HAS CALLED 2 TIMES SINCE ATTEMPTING DISCHARGE AND IS STANDING IN [address] WITH ARMS CROSSED. WILL CPOC
--- NOTE | 2019-03-11 20:12 | NUR ---
MEDHAT GAVE ORDER FOR MELATONIN 6MG QHS
[2019-03-11 20:17] VITALS: BP 133/52
--- NOTE | 2019-03-11 20:20 | NUR ---
SPOKE WITH DR CANTU REGARDING PT WANTING TO LEAVE. DR CANTU STATED PT NEEDS TO STAY TO BE EVALUATED. PT HAS NOT BEEN ON ANTIBIOTICS OR STERIODS FOR 24 HOURS. IT IS NOT RECOMMENDED TO LEAVE. IF PT LEAVES IT WILL BE AMA. WILL SPEAK TO PATIENT REGARDING WHAT THE DOCTORS SAID. WILL CPOC
--- NOTE | 2019-03-11 20:45 | NUR ---
SPOKE WITH PT REGARDING OPTIONS, SHE STATES IF DOCTOR SAID SHE DOESNT NEED TO LEAVE SHE WILL STAY. SHE APOLOGIZED FOR HER BEHAVIOR PRIOR. SHE FEELS THE STERIODS ARE CAUSING HER TO GO CRAZY. TOLD PT SHE HAS THE RIGHT TO REFUSE THEM. PT WANTS TO SKIP THE NIGHT DOSE AND SEE IF IT HELPS HER FEEL BETTER. PT DENIES ANY OTHER NEEDS. NO S/S OF DISTRESS. WILL CPOC
--- NOTE | 2019-03-11 21:45 | NUR ---
FSBS IS 355 16 UNITS GIVEN ORDERED. PT NOT TAKING STERIOD. PT FEELS IT IS MAKING HER ANXIOUS, SHAKY AND FEELING LIKE SHE IS GOING CRAZY. PT HAS NO S/S OF DISTRESS. WILL CPOC
[2019-03-11] MEDS ORDERED: TRAZODONE HCL150 MG PO (23:47)
--- NOTE | 2019-03-12 00:08 | NUR ---
TYLENOL GIVEN FOR RIGHT INNER EAR PAIN. PT STATES RIGHT EAR IS THROBBING. PT DENIES ANY OTHER NEEDS AT THIS TIME. RENETTA PATE
--- NOTE | 2019-03-12 01:45 | NUR ---
PT ASLEEP. AROUSES TO NURSE IN ROOM. PT STATES TYLENOL HELPED WITH EAR PAIN. PT ON ROOM AIR. AAO. DENIES ANY NEEDS. NO S/S OF DISTRESS. PT WILL CALL FOR ASSIST WHEN NEEDED. WILL CPOC
[2019-03-12 05:20] VITALS: BP 120/62
[2019-03-12 05:53] LABS: BASOPHILS 0.1 % (0-2); EOSINOPHILS 0 % (0-7); HEMATOCRIT 35.7 % (36.0-48.0); HEMOGLOBIN 12.4 g/dL (12-16); IMMATURE GRANULOCYTES 0.3 % (0-5); LYMPHOCYTES 9.4 % (15-50); MCH 30.2 pg (26.0-34.0); MCHC 34.7 g/dL (31.0-37.0); MCV 87.1 fL (80.0-100.0); MEAN PLATELET VOLUME 9.4 fL (7.4-10.4); MONOCYTES 9.2 % (2-11); PLATELET COUNT 219 10x3/uL (130-400); RDW 13.3 % (11.5-14.5)
[2019-03-12 05:54] LABS: WBC 14.1 10x3/uL (4.8-10.8)
[2019-03-12 06:12] LABS: ALBUMIN 2.9 g/dL (3.4-5.0); ANION GAP 14.3 mmol/L (8-16); BILIRUBIN - TOTAL 0.32 mg/dL (0.2-1.3); CALCIUM 9.1 mg/dL (8.5-10.1); CARBON DIOXIDE 25.2 mmol/L (21.0-32.0); CREATININE - SERUM 1.4 mg/dL (0.6-1.3); POTASSIUM - SERUM 4.5 mmol/L (3.5-5.1); PROTEIN - SERUM 6.7 g/dL (6.4-8.2)
--- NOTE | 2019-03-12 07:21 | NUR ---
MORNING MEDS GIVEN. FSBS IS 187 PT RECEIVED 4 UNITS ORDERED. PT DENIES ANY NEEDS AT THIS TIME. NO S/S OF DISTRESS. WILL CPOC
[2019-03-12 08:00] VITALS: BP 123/69
[2019-03-12 08:18] LABS: IMMUNOGLOBULIN A 340 mg/dL (87-352)
--- NOTE | 2019-03-12 09:07 | MORECARE ---
CASE MANAGEMENT DISCHARGE SUMMARY PATIENT: FERNANDO RAMIREZ UNIT: [id number] ADM DATE: 03/10/19 AGE: 48 : 68 SEX: F ROOM/BED: D.2133 AUTHOR: RAJI BAILEY PHYSICIAN: REFERRING PHYSICIAN: MICHAEL HECTOR DO DATE OF SERVICE: 03/12/19 Discharge Plan Patient Name: FERNANDO RAMIRZE Facility: [facility]:[place] : 1970 Planned Disposition: Home Anticipated Discharge Date: Discharge Date: Expected LOS: Initial Reviewer: [email or web address] Initial Review Date: 03/12/2019 Generated: 03/12/19 10:07 am DCPIA - Discharge Planning Initial Assessment Updated by [email or web address]: Abraham Eugene on 03/12/19 9:05 am * Is the patient Alert and Oriented? Yes * How many steps to enter\exit or inside your home? * PCP DR. HECTOR * Pharmacy [facility], [place] OR [place]- [facility] * Preadmission Environment Home with Family * ADLs Independent * Equipment Cane * Other Equipment NO MEDICAL EQUIPMENT PROVIDER PREFERENCE * List name and contact numbers for known caregivers / representatives who currently or will assist patient after discharge: LEANN MEREDITH, FRIEND, * Verbal permission to speak to the caregivers and representatives has been obtained from the patient. N/A * Community resources currently utilized None * Please name any agencies selected above. NONE * Additional services required to return to the preadmission environment? No * Can the patient safely return to the preadmission environment? Yes * Has this patient been hospitalized within the prior 30 days at any hospital? No Patient Name: FERNANDO RAMIREZ Page [id number] at 0907 All edits/amendments must be made on the electronic document DICTATION DATE: 03/12/19905 VAULT SERVICE MECHANIC: LINDA 03/12/19905 RPT#: [id number] DC DATE: STATUS: ADM IN [facility] [address] [place] [address] END OF REPORT
--- NOTE | 2019-03-12 09:14 | MORECARE ---
CASE MANAGEMENT DISCHARGE SUMMARY PATIENT: FERNANDO RAMIREZ UNIT: [id number] ADM DATE: 03/10/19 AGE: 48 : [birth year] SEX: F ROOM/BED: D.6353 AUTHOR: LYNNDOC PHYSICIAN: REFERRING PHYSICIAN: MICHAEL HECTOR DO DATE OF SERVICE: 03/12/19 Discharge Plan Patient Name: FERNANDO RAMIREZ Facility: [facility]:[place] : 1970 Planned Disposition: Home Anticipated Discharge Date: Discharge Date: Expected LOS: Initial Reviewer: [email or web address] Initial Review Date: 03/12/2019 Generated: 03/12/19 10:14 am Comments DCP- Discharge Planning Updated by [email or web address]: Abraham Eugene on 03/12/19 8:[address] Patient Name: FERNANDO RAMIREZ Admission Status: Elective Accout number: [id number] Admission Date: 03-10-2019 : 1970 Admission Diagnosis:ACUTE BRONCHITIS, UNSPECIFIED Attending: MICHAEL HECTOR Current LOS: 2 Anticipated DC Date: Planned Disposition: Home Primary Insurance: MEDICARE A & B Discharge Planning Comments: CM MET WITH PT IN ROOM TO DISCUSS DISCHARGE PLANNING AND NEEDS. PT REPORTS LIVING AT HOME INDEPENDENTLY WITH A FRIEND. PT HAS A CANE AND NO\O MEDICAL EQUIPMENT PROVIDER PREFERENCE. PT HAS NO OUTSIDE SERVICES ASSISTING IN THE HOME. CM DISCUSSED AVAILABILITY OF HOME HEALTH, REHAB SERVICES AND MEDICAL EQUIPMENT. PT DENIES DISCHARGE NEEDS, AT THIS TIME REPORTS HER FRIEND WILL PICK HER UP FOR DISCHARGE HOME. PT PLANS TO DISCHARGE HOME WHERE SHE LIVES WITH A FRIEND. PT HAS NO ANTICIPATED DISCHARGE NEEDS AT THIS TIME. CM TO FOLLOW AND ASSIST IF NEEDED. Vocational Instructor: Abraham Eugene DCPIA - Discharge Planning Initial Assessment Updated by [email or web address]: Abraham Eugene on 03/12/19 9:05 am * Is the patient Alert and Oriented? Yes * How many steps to enter\exit or inside your home? * PCP DR. HECTOR * Pharmacy [facility], [facility] OR [facility]- [facility]IL ORDER * Preadmission Environment Home with Family * ADLs Independent * Equipment Cane * Other Equipment NO MEDICAL EQUIPMENT PROVIDER PREFERENCE * List name and contact numbers for known caregivers / representatives who currently or will assist patient after discharge: LEANN MEREDITH, FRIEND, * Verbal permission to speak to the caregivers and representatives has been obtained from the patient. N/A * Community resources currently utilized None * Please name any agencies selected above. NONE * Additional services required to return to the preadmission environment? No * Can the patient safely return to the preadmission environment? Yes * Has this patient been hospitalized within the prior 30 days at any hospital? No Last DP export: 03/12/19 8:07 a Patient Name: FERNANDO RAMIREZ Page [phone] at 0914 All edits/amendments must be made on the electronic document DICTATION DATE: 03/12/19913 TRANSONIC ENGINEER: LINDA 03/12/19913 RPT#: [id number] DC DATE: STATUS: ADM IN [facility] [address] [place] [address] END OF REPORT
--- NOTE | 2019-03-12 12:34 | NUR ---
I have reviewed this patient and I concur with the Shift Assessment completed by the Licensed Practical Nurse today this shift.
[2019-03-12 12:38] VITALS: BP 110/64
[2019-03-12 13:03] VITALS: Ht 170.2 cm; Wt 90.3 kg
--- NOTE | 2019-03-12 13:15 | MORECARE ---
CASE MANAGEMENT DISCHARGE SUMMARY PATIENT: FERNANDO RAMIREZ UNIT: [id number] ADM DATE: 03/10/19 AGE: 48 : 68 SEX: F ROOM/BED: D.8233 AUTHOR: LYNNDOC PHYSICIAN: REFERRING PHYSICIAN: MICHAEL HECTOR DO DATE OF SERVICE: 03/12/19 Discharge Plan Patient Name: FERNANDO RAMIREZ Facility: [facility]:[place] : 1970 Planned Disposition: Home Anticipated Discharge Date: Discharge Date: Expected LOS: Initial Reviewer: [id number] Initial Review Date: 03/12/2019 Generated: 03/12/19 2:15 pm Comments DCP- Discharge Planning Updated by [email or web address]: Abraham Eugene on 03/12/19 8:[address] Patient Name: FERNANDO RAMIREZ Admission Status: Elective Accout number: [id number] Admission Date: 03-10-2019 : 1970 Admission Diagnosis:ACUTE BRONCHITIS, UNSPECIFIED Attending: MICHAEL HECTOR Current LOS: 2 Anticipated DC Date: Planned Disposition: Home Primary Insurance: MEDICARE A & B Discharge Planning Comments: CM MET WITH PT IN ROOM TO DISCUSS DISCHARGE PLANNING AND NEEDS. PT REPORTS LIVING AT HOME INDEPENDENTLY WITH A FRIEND. PT HAS A CANE AND NO\O MEDICAL EQUIPMENT PROVIDER PREFERENCE. PT HAS NO OUTSIDE SERVICES ASSISTING IN THE HOME. CM DISCUSSED AVAILABILITY OF HOME HEALTH, REHAB SERVICES AND MEDICAL EQUIPMENT. PT DENIES DISCHARGE NEEDS, AT THIS TIME REPORTS HER FRIEND WILL PICK HER UP FOR DISCHARGE HOME. PT PLANS TO DISCHARGE HOME WHERE SHE LIVES WITH A FRIEND. PT HAS NO ANTICIPATED DISCHARGE NEEDS AT THIS TIME. CM TO FOLLOW AND ASSIST IF NEEDED. Metal Bonding Assembler: Abraham Eugene DCPIA - Discharge Planning Initial Assessment Updated by [email or web address]: Abraham Eugene on 03/12/19 9:05 am * Is the patient Alert and Oriented? Yes * How many steps to enter\exit or inside your home? * PCP DR. HECTOR * Pharmacy [facility], [facility] OR [facility] * Preadmission Environment Home with Family * ADLs Independent * Equipment Cane * Other Equipment NO MEDICAL EQUIPMENT PROVIDER PREFERENCE * List name and contact numbers for known caregivers / representatives who currently or will assist patient after discharge: LEANN MEREDITH, FRIEND, * Verbal permission to speak to the caregivers and representatives has been obtained from the patient. N/A * Community resources currently utilized None * Please name any agencies selected above. NONE * Additional services required to return to the preadmission environment? No * Can the patient safely return to the preadmission environment? Yes * Has this patient been hospitalized within the prior 30 days at any hospital? No External Providers External Provider[facility] Next Contact Date: 03/12/2019 Service Request Date: Service Type: Resolution: Reviewer: Comments: Last DP export: 03/12/19 8:14 a Patient Name: FERNANDO RAMIREZ Page 36601 at 1315 All edits/amendments must be made on the electronic document DICTATION DATE: 03/12/191314 ELIGIBILITY CONSULTANT: LINDA 03/12/19 1315 RPT#: [id number] DC DATE: STATUS: ADM IN [facility] [address] [place] [address] END OF REPORT
--- NOTE | 2019-03-12 13:29 | MORECARE ---
CASE MANAGEMENT DISCHARGE SUMMARY PATIENT: FERNANDO RAMIREZ UNIT: [id number] ADM DATE: 03/10/19 AGE: 48 : 68 SEX: F ROOM/BED: D.2743 AUTHOR: RAJI BAILEY PHYSICIAN: REFERRING PHYSICIAN: MICHAEL HECTOR DO DATE OF SERVICE: 03/12/19 Discharge Plan Patient Name: FERNANDO RAMIREZ Facility: [facility]:[place] : 1970 Planned Disposition: Home Anticipated Discharge Date: 03/12/19 Discharge Date: Expected LOS: 2 Initial Reviewer: [email or web address] Initial Review Date: 03/12/2019 Generated: 03/12/19 2:29 pm Comments DCP- Discharge Planning Updated by [email or web address]: Abraham Eugene on 03/12/19 12:[address] Patient Name: FERNANDO RAMIREZ Encounter No: [id number] : 1970 Primary Insurance: MEDICARE A & B Anticipated DC Date: 03-12-2019 Planned Disposition: Home DCP follow-up note: CM RECEIVED ORDER FOR NEBULIZER FROM DR. CANTU. CM MET WITH PT IN ROOM, DICSUSSED DISCHARGE NEEDS AND PLANNING. PT DENIES NEEDS OTHER THAN THE NEBULIZER. PT HAS NOT CHOICE ON MEDICAL EQUIPMENT PROVIDER, CM PROVIDED PROVIDER LISTING FOR LOCAL MEDICAL EQUIPMENT COMPANIES. PT SIGNED CONSENT FOR NO CHOICE OF PROVIDER. CM CALLED [facility], , SPOKE TO JULIA AND PROVIDED REFERRAL INFORMATION. CM FAXED REFERRAL TO [facility], . RENAE ADVISED THEY WILL DELIVER NEBULIZER TO HOSPITAL TODAY. CLINICAL REGISTERED NURSE NURSE NOTIFIED. Abraham Eugene, CASE MANAGEMENT DCP- Discharge Planning Updated by [email or web address]: Abraham Eugene on 03/12/19 8:[address] Patient Name: FERNANDO RAMIREZ Admission Status: Elective Accout number: [id number] Admission Date: 03-10-2019 : 1970 Admission Diagnosis:ACUTE BRONCHITIS, UNSPECIFIED Attending: MICHAEL HECTOR Current LOS: 2 Anticipated DC Date: Planned Disposition: Home Primary Insurance: MEDICARE A & B Discharge Planning Comments: CM MET WITH PT IN ROOM TO DISCUSS DISCHARGE PLANNING AND NEEDS. PT REPORTS LIVING AT HOME INDEPENDENTLY WITH A FRIEND. PT HAS A CANE AND NO\O MEDICAL EQUIPMENT PROVIDER PREFERENCE. PT HAS NO OUTSIDE SERVICES ASSISTING IN THE HOME. CM DISCUSSED AVAILABILITY OF HOME HEALTH, REHAB SERVICES AND MEDICAL EQUIPMENT. PT DENIES DISCHARGE NEEDS, AT THIS TIME REPORTS HER FRIEND WILL PICK HER UP FOR DISCHARGE HOME. PT PLANS TO DISCHARGE HOME WHERE SHE LIVES WITH A FRIEND. PT HAS NO ANTICIPATED DISCHARGE NEEDS AT THIS TIME. CM TO FOLLOW AND ASSIST IF NEEDED. Plug Sorter: Abraham Eugene DCPIA - Discharge Planning Initial Assessment Updated by [email or web address]: Abraham Eugene on 03/12/19 9:05 am * Is the patient Alert and Oriented? Yes * How many steps to enter\exit or inside your home? * PCP DR. HECTOR * [facility] * Preadmission Environment Home with Family * ADLs Independent * Equipment Cane * Other Equipment NO MEDICAL EQUIPMENT PROVIDER PREFERENCE * List name and contact numbers for known caregivers / representatives who currently or will assist patient after discharge: LEANN MEREDITH, FRIEND, * Verbal permission to speak to the caregivers and representatives has been obtained from the patient. N/A * Community resources currently utilized None * Please name any agencies selected above. NONE * Additional services required to return to the preadmission environment? No * Can the patient safely return to the preadmission environment? Yes * Has this patient been hospitalized within the prior 30 days at any hospital? No Last DP export: 03/12/19 12:15 p Patient Name: FERNANDO RAMIREZ Page 15809 at 1329 All edits/amendments must be made on the electronic document DICTATION DATE: 03/12/19 1329 NURSE EMERGENCY ROOM: LINDA 03/12/19 1329 RPT#: [id number] DC DATE: STATUS: ADM IN [facility] [address] [place] [address] END OF REPORT
--- NOTE | 2019-03-12 13:37 | MORECARE ---
CASE MANAGEMENT DISCHARGE SUMMARY PATIENT: FERNANDO RAMIREZ UNIT: [id number] ADM DATE: 03/10/19 AGE: 48 : 68 SEX: F ROOM/BED: D.7673 AUTHOR: RAJI BAILEY PHYSICIAN: REFERRING PHYSICIAN: MICHAEL HECTOR DO DATE OF SERVICE: 03/12/19 Discharge Plan Patient Name: FERNANDO RAMIREZ Facility: [facility]:[place] : 1970 Planned Disposition: Home Anticipated Discharge Date: 03/12/19 Discharge Date: Expected LOS: 2 Initial Reviewer: [id number] Initial Review Date: 03/12/2019 Generated: 03/12/19 2:37 pm Comments DCP- Discharge Planning Updated by [email or web address]: Abraham Eugene on 03/12/19 12:[address] Patient Name: FERNANDO RAMIREZ Encounter No: [id number] : 1970 Primary Insurance: MEDICARE A & B Anticipated DC Date: 03-12-2019 Planned Disposition: Home DCP follow-up note: CM RECEIVED ORDER FOR NEBULIZER FROM DR. CANTU. CM MET WITH PT IN ROOM, DICSUSSED DISCHARGE NEEDS AND PLANNING. PT DENIES NEEDS OTHER THAN THE NEBULIZER. PT HAS NOT CHOICE ON MEDICAL EQUIPMENT PROVIDER, CM PROVIDED PROVIDER LISTING FOR LOCAL MEDICAL EQUIPMENT COMPANIES. PT SIGNED CONSENT FOR NO CHOICE OF PROVIDER. IMPORTANT MESSAGE FROM MEDICARE PROVIDED AND EXPLAINED. CM CALLED [facility], , SPOKE TO JULIA AND PROVIDED REFERRAL INFORMATION. CM FAXED REFERRAL TO [facility], . RENAE ADVISED THEY WILL DELIVER NEBULIZER TO HOSPITAL TODAY. HAZARDOUS SUBSTANCES SCIENTIST NURSE NOTIFIED. Abraham Eugene, CASE MANAGEMENT DCP- Discharge Planning Updated by [email or web address]: Abraham Eugene on 03/12/19 8:[address] Patient Name: FERNANDO RAMIREZ Admission Status: Elective Accout number: [id number] Admission Date: 03-10-2019 : 1970 Admission Diagnosis:ACUTE BRONCHITIS, UNSPECIFIED Attending: MICHAEL HECTOR Current LOS: 2 Anticipated DC Date: Planned Disposition: Home Primary Insurance: MEDICARE A & B Discharge Planning Comments: CM MET WITH PT IN ROOM TO DISCUSS DISCHARGE PLANNING AND NEEDS. PT REPORTS LIVING AT HOME INDEPENDENTLY WITH A FRIEND. PT HAS A CANE AND NO\O MEDICAL EQUIPMENT PROVIDER PREFERENCE. PT HAS NO OUTSIDE SERVICES ASSISTING IN THE HOME. CM DISCUSSED AVAILABILITY OF HOME HEALTH, REHAB SERVICES AND MEDICAL EQUIPMENT. PT DENIES DISCHARGE NEEDS, AT THIS TIME REPORTS HER FRIEND WILL PICK HER UP FOR DISCHARGE HOME. PT PLANS TO DISCHARGE HOME WHERE SHE LIVES WITH A FRIEND. PT HAS NO ANTICIPATED DISCHARGE NEEDS AT THIS TIME. CM TO FOLLOW AND ASSIST IF NEEDED. Budget Clerk: Abraham Eugene DCPIA - Discharge Planning Initial Assessment Updated by [id number]: Abraham Eugene on 03/12/19 9:05 am * Is the patient Alert and Oriented? Yes * How many steps to enter\exit or inside your home? * PCP DR. HECTOR * Pharm[facility] [place] [facility] * Preadmission Environment Home with Family * ADLs Independent * Equipment Cane * Other Equipment NO MEDICAL EQUIPMENT PROVIDER PREFERENCE * List name and contact numbers for known caregivers / representatives who currently or will assist patient after discharge: LEANN ROTHPATRICK, FRIEND, * Verbal permission to speak to the caregivers and representatives has been obtained from the patient. N/A * Community resources currently utilized None * Please name any agencies selected above. NONE * Additional services required to return to the preadmission environment? No * Can the patient safely return to the preadmission environment? Yes * Has this patient been hospitalized within the prior 30 days at any hospital? No Coverage Notice Reviewer: [id number] Aldair Eugene Notice Issued Date-Time: 03/12/2019 12:40 Notice Type: IM Discharge Notice Notice Delivered To: Patient Relationship to Patient: Grease Press Helper Name: Delivery Method: HAND - Hand Delivered Carole Days: Prior Verbal Notification: Recipient Understood Notice: Yes Recipient Signature: Yes Med Rec Note Co-signed by Attending: Coverage Notice Comment: Reviewer: [email or web address] Aldair Eugene Notice Issued Date-Time: 03/12/2019 12:40 Notice Type: Patient Choice Letter Notice Delivered To: Patient Relationship to Patient: Grease Press Helper Name: Delivery Method: HAND - Hand Delivered Carole Days: Prior Verbal Notification: Recipient Understood Notice: Yes Recipient Signature: Yes Med Rec Note Co-signed by Attending: Coverage Notice Comment: NO MEDICAL EQUIPMENT PROVIDER PREFERENCE Last DP export: 03/12/19 12:29 p Patient Name: FERNANDO RAMIREZ Page [phone] at 1337 All edits/amendments must be made on the electronic document DICTATION DATE: 03/12/191336 RESTROOMS OR LOUNGES MAID: LINDA 03/12/191336 RPT#: [id number] DC DATE: STATUS: ADM IN [facility] [address] [place] [address] END OF REPORT
[2019-03-12] MEDS ORDERED: PREDNISONE10 MG PO (14:08)
[2019-03-12] MEDS ORDERED: OMNICEF300 MG PO ×2 (14:56→15:45)
[2019-03-12] MEDS ORDERED: DOXYCYCLINE HY100 M2 PO ×2 (15:00→15:45)
[2019-03-12] MEDS ORDERED: TESSALON PERLE100 MG PO (15:06)
[2019-03-12] MEDS ORDERED: MUCINEX DM ER1 EAC1 PO (15:08)
[2019-03-12] MEDS ORDERED: SINGULAIR10 MG PO (15:08)
[2019-03-12] MEDS ORDERED: FLUTICASONE PRO16 GM NASAL (15:12)
[2019-03-12] MEDS ORDERED: XOPENEX 0.0.63 MG/3 UPD (15:22)
[2019-03-12] MEDS ORDERED: SYMBICORT 16010.2 GM INH (15:27)
[2019-03-12] MEDS ORDERED: ATROVENT 0.02%2.5 ML UPD (15:29)
[2019-03-12 16:30] VITALS: BP 121/91
[2019-03-12 18:07] LABS: ANA REFLEX - DIRECT Negative (Negative)
[2019-03-13 11:14] LABS: IGG SUBCLASS 1 538 mg/dL (248-810); IGG SUBCLASS 2 167 mg/dL (130-555); IGG SUBCLASS 3 20 mg/dL (15-102); IGG SUBCLASS 4 26 mg/dL (2-96); IMMUNOGLOBULIN G 807 mg/dL (700-1600)
== END 2019-03-12 17:02 | disposition home or self-care (01) | DRG 202 ==
LOC: D.SDCHOLD 10:58 → D.M2 11:03
PROVIDERS: Family Medicine; Internal Medicine Pulmonary Disease; ADMIT Family Medicine; ATTEND Family Medicine
DX: J20.9 Acute bronchitis, unspecified (principal); J44.0 Chronic obstructive pulmonary disease with (acute) lower respiratory infection; J45.901 Unspecified asthma with (acute) exacerbation; F17.213 Nicotine dependence, cigarettes, with withdrawal; J44.1 Chronic obstructive pulmonary disease with (acute) exacerbation; K21.9 Gastro-esophageal reflux disease without esophagitis; J04.0 Acute laryngitis; E78.5 Hyperlipidemia, unspecified; G47.33 Obstructive sleep apnea (adult) (pediatric); K58.1 Irritable bowel syndrome with constipation; E11.40 Type 2 diabetes mellitus with diabetic neuropathy, unspecified; E11.65 Type 2 diabetes mellitus with hyperglycemia; F32.9 Major depressive disorder, single episode, unspecified; F41.9 Anxiety disorder, unspecified; G47.00 Insomnia, unspecified; T38.0X5A Adverse effect of glucocorticoids and synthetic analogues, initial encounter

== ENCOUNTER → 2019-08-20 14:33 | Outpatient (CLI) | payer MEDICARE ==
[2019-03-12 13:03] VITALS: BMI 31.1
[~2019-08-20 14:33] MED LIST changes: +ATROVENT 0.02%2.5 ML UPD; +DOXYCYCLINE HY100 M2 PO; +FLUTICASONE PRO16 GM NASAL; +MUCINEX DM ER1 EAC1 PO; +OMNICEF300 MG PO; +PREDNISONE10 MG PO; +SINGULAIR10 MG PO; +SYMBICORT 16010.2 GM INH; +TESSALON PERLE100 MG PO; +TRAZODONE HCL150 MG PO; +XOPENEX 0.0.63 MG/3 UPD
== END | disposition home or self-care (01) ==
LOC: D.RT 07-13 11:00
PROVIDERS: ATTEND Internal Medicine Pulmonary Disease
DX: J44.9 Chronic obstructive pulmonary disease, unspecified (principal)

== ENCOUNTER 2019-10-08 08:00 | Outpatient (CLI) | payer MEDICARE ==
[2019-03-12 13:03] VITALS: BMI 31.1
== END 2019-10-08 23:59 | disposition home or self-care (01) ==
LOC: D.MAMMO 08:00
PROVIDERS: ATTEND Family Medicine
DX: R92.8 Other abnormal and inconclusive findings on diagnostic imaging of breast (principal)